=== PATIENT | male | born 1945 | race Caucasian/White ===

== ENCOUNTER 2017-01-27 13:43 | Emergency (ER) | payer OTHER ==
[2017-01-27 14:00] VITALS: BP 145/86
[2017-01-27] MEDS ORDERED: DUONEB (A & A) INH ONE (14:07)
--- NOTE | 2017-01-27 14:12 | PROVIDER DOCUMENTATION ---
HPI-General Adult - General Source: patient - History of Present Illness -Gen Adult Nature of Presenting Problems: 71 Yom that has multiple ER visits for prescription request of neurotin and kolonopin presents today with a cc of medication request. Pt reports his doctor has moved out of town and is unable to get medication needed for his seizures. Pt also reports to er with cc of cough. Pt is a heavy smoker. Quality of Pain: reports: none Similar Symptoms Previously?: Yes Recently seen or treated by another doctor?: No <David Corcoran - Last Filed: 01/27/17 14:12> <Glenn Davies - Last Filed: 01/27/17 14:25> - General Chief Complaint: Request RX Stated Complaint: REQUEST RX Time Seen by Provider: 01/27/17 13:49 Allergies/Adverse Reactions: Patient Allergies Allergy/AdvReac Type Severity Reaction Status Date / Time ketorolac tromethamine * Allergy Mild RASH Verified 05/27/16 13:16 [From Toradol] tramadol HCl * [From Ultram] Allergy Mild RASH Verified 05/27/16 13:16 Home Medications: Home Medication List Medication Instructions Recorded Confirmed Last Taken Type Gabapentin [Neurontin] 600 mg PO TID #45 tablet 02/13/16 03/12/16 02/27/16 Rx Clonazepam [Klonopin] 1 mg PO TID #90 tab.rapdis 03/12/16 Unknown Rx Clonazepam [Klonopin] 0.5 mg PO TID #10 tab.rapdis 05/27/16 Unknown Rx Gabapentin [Neurontin] 600 mg PO TID #30 tablet 05/27/16 Unknown Rx Gabapentin [Neurontin] 600 mg PO TID #90 tablet 09/04/16 Unknown Rx Amoxicillin 875 mg PO BID #20 tablet 12/05/16 Unknown Rx Clonazepam 0.5 mg PO TID #30 tablet 12/05/16 Unknown Rx Gabapentin 600 mg PO TID #60 tablet 12/05/16 Unknown Rx Azithromycin [Zithromax Z-Ronald] 250 mg PO DIRECTED #1 pkg 01/27/17 Unknown Rx Levetiracetam [Keppra] 500 mg PO BID #60 tablet 01/27/17 Unknown Rx Methylprednisolone [Medrol Dosepak] 4 mg PO DIRECTED #1 package 01/27/17 Unknown Rx Review of Systems - Adult - REVIEW OF SYSTEMS - ADULT Constitutional: denies: chills, fever, fatique Eyes: reports: no symptoms reported Ears, Nose, Mouth & Throat: denies: ear pain, sinus problem, throat pain Cardiovascular: reports: no symptoms reported Respiratory: reports: cough. denies: hemoptysis, pleurisy, shortness of breath , wheezing Gastrointestinal: reports: no symptoms reported Genitourinary: reports: no symptoms reported Musculoskeletal: reports: no symptoms reported Integumentary: reports: no symptoms reported Neurological: reports: no symptoms reported Psychiatric: reports: no symptoms reported Endocrine: reports: no symptoms reported Hematologic/Lymphatic: reports: no symptoms reported Allergic/Immunologic: reports: no symptoms reported All Other Systems: Reviewed and Negative <David Corcoran - Last Filed: 01/27/17 14:12> Past History - Adult - PAST MEDICAL HISTORY-ADULT Review of Records: reports: Nursing Assessment Review Major Childhood Illnesses: reports: denies history Cardiovascular: reports: denies history Respiratory: reports: COPD Gastrointestinal: reports: denies history Obstetrical/Gynecological: reports: denies history Genitourinary: reports: prostate cancer, other (inguinal hernia) Musculoskeletal: reports: chronic pain, orthopedic injury (bulging disk) Neurological: reports: Seizures/Epilepsy (per pt hx only) Psychiatric: reports: psychiatric problems Endocrine/Immune: reports: denies history Other Conditions: reports: other cancer (Prostate) - PRIOR SURGERIES/PROCEDURES Surgical/Procedure History: reports: hernia repair - IMMUNIZATION STATUS Childhood Immunizations: See Nurse Assessment Flu Vaccine: See Nurse Assessment - FAMILY HISTORY Family History: reviewed, not pertinent - SOCIAL HISTORY Smoking: cigarettes, greater than 1 pack/day Provider spent 3-5 mins advising pt. on dangers of tobacco.: Discussed manners to quit use, and f/u contacts for add'l counseling. Substance Use: none/never <David Corcoran - Last Filed: 01/27/17 14:12> Physical Exam-General - PHYSICAL EXAM-ADULT Initial Vital Signs Reviewed: Yes - CONSTITUTIONAL General Appearance: appears well, alert, no apparent distress - EYES Eyes: PERRL/EOMI - HEAD, EARS, NOSE, MOUTH & THROAT HENMT: moist mucous membranes, normal ENT inspection, TMs normal, pharynx normal - NECK Neck: non-tender, full range of motion, supple, normal inspection - RESPIRATORY Respiratory: chest non-tender, normal breath sounds, no pleuratic chest pain, no respiratory distress, no accessory muscle use, wheezing (bilaterally mild expiratory) - CARDIOVASCULAR Cardiovascular: regular rate, rhythm - GASTROINTESTINAL (ABDOMEN) Abdominal Exam: non tender, soft, no organomegaly, no pulsatile mass - MUSCULOSKELETAL Back Exam: normal inspection, no CVA tenderness, no vertebral tenderness Extremity: normal range of motion, non-tender, normal gait - SKIN Integumentary: normal color, normal turgor, warm/dry - PSYCHIATRIC Psych/Mental Status: normal mood/affect, normal thought content, normal thought process, oriented x 3 <David Corcoran - Last Filed: 01/27/17 14:12> Progress - PLAN OF CARE/RESULTS Progress/Plan/Lab Results: Orders Category Date Time Status Albuterol 2.5MG/Ipratrop 0.5MG [Duoneb (A & A)] Med 01/27/17 14:07 Discontinued 6 ml INH NOW ONE Aerosol Treatments Routine Oth 01/27/17 14:08 Active Aerosol Treatments Stat Oth 01/27/17 14:08 Active Vital Signs - 24 hr 01/27/17 13:57 Temperature 98 F Pulse Rate 86 Respiratory 18 Rate Blood Pressure 145/86 O2 Sat by Pulse 96 Oximetry <David Corcoran - Last Filed: 01/27/17 14:12> - PLAN OF CARE/RESULTS Progress/Plan/Lab Results: Discussed results and plan of care with patient. Patient agrees with plan and verbalizes understanding. Vital Signs Temp Pulse Resp BP Pulse Ox 01/27/17 14:20 86 18 98 01/27/17 13:57 98 F 86 18 145/86 96 ketorolac tromethamine * [From Toradol] Allergy (Mild, Verified 05/27/16 13:16) RASH tramadol HCl * [From Ultram] Allergy (Mild, Verified 05/27/16 13:16) RASH Gabapentin [Neurontin] 600 mg PO TID #45 tablet 02/13/16 Clonazepam [Klonopin] 1 mg PO TID #90 tab.rapdis 03/12/16 Clonazepam [Klonopin] 0.5 mg PO TID #10 tab.rapdis 05/27/16 Gabapentin [Neurontin] 600 mg PO TID #30 tablet 05/27/16 Gabapentin [Neurontin] 600 mg PO TID #90 tablet 09/04/16 Amoxicillin 875 mg PO BID #20 tablet 12/05/16 Clonazepam 0.5 mg PO TID #30 tablet 12/05/16 Gabapentin 600 mg PO TID #60 tablet 12/05/16 Orders Category Date Time Status Albuterol 2.5MG/Ipratrop 0.5MG [Duoneb (A & A)] Med 01/27/17 14:07 Discontinued 6 ml INH NOW ONE Aerosol Treatments Routine Oth 01/27/17 14:08 Active Aerosol Treatments Stat Oth 01/27/17 14:08 Active <Glenn Davies - Last Filed: 01/27/17 14:25> Departure <David Corcoran - Last Filed: 01/27/17 14:12> - Departure Time of Disposition Order: 14:22 Certified Medical Emergency: Emergent <Glenn Davies - Last Filed: 01/27/17 14:25> - Departure DIAGNOSIS: Medication refill, Wheezing URI (upper respiratory infection) Qualifiers: URI type: unspecified viral URI Qualified Code(s): J06.9 - Acute upper respiratory infection, unspecified; B97.89 - Other viral agents as the cause of diseases classified elsewhere Disposition: HOME 01 Condition: Stable Additional Instructions: Follow up with primary care physician Take medications as directed Return to ED for any concerns or worsening of symptoms ED Follow Up Instructions: You have been treated by a care provider in the Emergency Department. These instructions are being provided to you so you can have an understanding of how to care for yourself upon discharge. Upon discharge from the Emergency Department, you are responsible for making arrangements for follow-up care by a physician of your choice. Take all prescribed medications as directed. Return to the Emergency Department immediately for any new or worsening symptoms. You may call the Physician Referral phone number at [phone] to obtain a list of Physicians who are taking new patients. Prescriptions: Levetiracetam [Keppra] 500 mg PO BID #60 tablet Methylprednisolone [Medrol Dosepak] 4 mg PO DIRECTED #1 package Azithromycin [Zithromax Z-Ronald] 250 mg PO DIRECTED #1 pkg Referrals: None,PCP [Primary Care Provider] - Michael Correia MD [STAFF PHYSICIAN] - Attestation - Scribe Verification/Attestation Scribe:: David Corcoran Acting as Scribe for:: Glenn Davies Scribe documention review:: This chart was documented by a scribe and accurately reflects the service the provider performed and the decisions made by the provider. <David Corcoran - Last Filed: 01/27/17 14:12> - Physician/ [place] Attestation Patient care was provided by Advanced Practice Provider:: Yes Advanced Practice Provider:: Glenn Davies Advanced Practice Provider documentation review:: The Mid-level provider documentation, treatment plan and medical decision making was reviewed by the physician who agrees with all treatment and medical decision making by the MLP. <Glenn Davies - Last Filed: 01/27/17 14:25> Physician Attestation
[2017-01-27] MEDS ORDERED: ZITHROMAX PO ONE (14:24)
[2017-01-27] MEDS ORDERED: DECADRON IM ONE (14:24)
== END 2017-01-27 14:52 | disposition home or self-care (01) ==
LOC: P.ED 13:43
DX: J06.9 Acute upper respiratory infection, unspecified (principal); R06.2 Wheezing; R05 Cough; J44.9 Chronic obstructive pulmonary disease, unspecified; G89.29 Other chronic pain; R56.9 Unspecified convulsions; F17.210 Nicotine dependence, cigarettes, uncomplicated; Z79.899 Other long term (current) drug therapy; Z76.0 Encounter for issue of repeat prescription; Z71.6 Tobacco abuse counseling; Z85.46 Personal history of malignant neoplasm of prostate
CPT/HCPCS: 94640; 96372

== ENCOUNTER 2017-02-04 09:38 | Emergency (ER) | payer OTHER ==
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
[2017-02-04 11:01] VITALS: BP 146/71
== END 2017-02-04 11:01 | disposition home or self-care (01) ==
LOC: ED 09:38
DX: R56.9 Unspecified convulsions (principal); J44.9 Chronic obstructive pulmonary disease, unspecified; G89.29 Other chronic pain; F17.210 Nicotine dependence, cigarettes, uncomplicated; Z79.899 Other long term (current) drug therapy; Z76.0 Encounter for issue of repeat prescription; Z71.6 Tobacco abuse counseling; Z85.46 Personal history of malignant neoplasm of prostate